=== PATIENT | female | born 1980 | race Caucasian/White ===

== ENCOUNTER → 2019-12-03 | Outpatient (CLI) | payer BC ==
[2004-05-05 08:29] VITALS: PULSE 58; TEMP 98.4
== END ==
LOC: MC.RAD 16:13
DX: Z12.31 Encounter for screening mammogram for malignant neoplasm of breast (principal)

== ENCOUNTER → 2024-01-29 | Outpatient (CLI) | payer BC ==
[2004-05-05 08:29] VITALS: PULSE 58; TEMP 98.4
== END ==
LOC: MC.RAD 12:55
DX: Z12.31 Encounter for screening mammogram for malignant neoplasm of breast (principal)